=== PATIENT | female | born 1955 | race Caucasian/White ===

== ENCOUNTER → 2017-11-28 | Outpatient (CLI) | payer OTHER ==
[~2017-11-28] MED LIST: ADVAIR 250-501 EACH INH; ALLERTEC PO; AMLODIPINE BESY10 MG PO; ASPIRIN325; ASPIRIN81 M2 PO; BIAXIN 500 MG500 M1 PO; CELEXA40 MG PO; COZAAR 50 MG TA50 M2 PO; CRESTOR10 MG PO; CYCLOBENZAPRINE10 MG PO; DUONEB 2.5-0.5 M3 ML INH; EXFORGE; EXFORGE PO; FLEXERIL PO; FUROSEMIDE 20 M20 M1 PO; GLUCOPHAGE500 MG PO; HYDROCODONE-APA1 TA1 PO; IRON325 PO; LEVOTHYROXIN0.075 MG PO; LOPRESSOR25; LORAZEPAM 0.50.5 M1 PO; NICOTINE TRANSD14 M1; NORCO 5-325 TA1 EACH; NORVASC 5 MG TAB5 MG PO; NOVOLOG100 UNIT/1 SQ; OXYCODONE HCL5 M1; OXYCODONE HCL5 M1 PO; PERCOCET 5-3251 EACH PO; POTASSIUM GLUCONATE PO; PREDNISONE 10 M10 M1 PO; PREDNISONE 20 M20 MG PO; PROAIR HFA8.5 GM; PROAIR PO; PROTONIX 20 MG20 M1 PO; ROBAXIN500 MG PO; SINGULAIR 10 MG10 M1 PO; VITAMIN B-12500 MCG PO; VITAMIN D32000 UNI1 PO; XARELTO10 M1; ZOCOR20 MG PO; ZPAK PO
--- NOTE | 2017-12-08 11:21 | SLEEP ---
[facility] [address] [place] [address] SLEEP STUDY REPORT Name: MARISELA TURPIN Room: [facility]#: [id number] Admission: 11/28/17 Attend Phys: Justin Mcdaniels Discharge: Date of : 53 Report #: [id number] THIS REPORT FOR: //name// CC: Maritza Carvalho This study has been reviewed in its entirety by a board certified sleep specialist DATE OF SERVICE: 11/28/2017 REFERRING PHYSICIAN: Maritza Carvalho DO INDICATION FOR STUDY: Fatigue and snoring. This was a home sleep apnea test with total recording time 559 minutes. During the study, the patient had 1 central apnea, 85 obstructive apnea and 173 hypopneas with overall apnea-hypopnea index 27.8 per hour. The patient spent the whole night on the right lateral position. OXIMETRY DISTRIBUTION: The average O2 saturation during the study was 89%. The lowest O2 saturation recorded was 74%. It was noted the patient spent 356 minutes with O2 saturation less than 90%. Average heart rate was 67 beats per minute and snoring was recorded during the study. IMPRESSION: 1. The above home sleep apnea test demonstrates obstructive sleep apnea with apnea-hypopnea index 27.8 and oxygen desaturation down to 74%. 2. Hypoxemia during sleep with O2 saturation on average 89% and the patient spent 356 minutes with O2 saturation less than 90%. RECOMMENDATIONS: 1. Due to severe hypoxemia during sleep, we would recommend sending the patient to a sleep lab for attended in lab sleep study with a purpose of PAP titration to determine the PAP pressure that controls the patient's obstructive sleep apnea. At the same time determine the need for oxygen after controlling the patient's obstructive sleep apnea. 2. Hypoxemia during sleep, recommend evaluation for intrinsic lung disease. <ELECTRONICALLY SIGNED> By: Joselo Fair MD 12/08/17 1121 1218 [id number] Fair MD /nt
== END ==
LOC: M.SLEEPLAB 00:59
DX: G47.33 Obstructive sleep apnea (adult) (pediatric) (principal); J43.9 Emphysema, unspecified; E11.9 Type 2 diabetes mellitus without complications; I10 Essential (primary) hypertension

== ENCOUNTER → 2018-02-04 | Outpatient (CLI) | payer OTHER ==
--- NOTE | 2018-02-21 11:16 | SLEEP ---
[address] [address] SLEEP STUDY REPORT Name: MARISELA TURPIN Room: [facility]#: [id number] Admission: 02/04/18 Attend Phys: Justin Mcdaniels Discharge: Date of : 53 Report #: [id number] THIS REPORT FOR: //name// CC: Maritza Carvalho This study has been reviewed in its entirety by a board certified sleep specialist REFERRING PHYSICIAN: Maritza Carvalho DO. TYPE OF STUDY: Polysomnography. INDICATION: Obstructive sleep apnea, unspecified; hypersomnia with [employer] sleepiness score of 15. METHOD: The following parameters were monitored: Frontal, central and occipital EEG; electro-oculogram; submentalis EMG; nasal and oral airflow; anterior tibialis EMG; body position and electrocardiogram. Additionally, thoracic and abdominal movements were recorded by inductance plethysmography. Oxygen saturation was monitored using pulse oximeter. The tracing was used scoring 30-second epochs. Hypopneas were recorded per the [employer] definition using the 4% desaturation criteria. SLEEP DATA: Total recording time 490.2 minutes. Total sleep time was 399.5 minutes. Sleep efficiency was 81.5%. SLEEP STAGING: Stage N1 was 22.8% of total sleep time, stage N2 was 61.0% of total sleep time, stage N3 was 0.3% of total sleep time and stage REM was 16% of total sleep time. RESPIRATORY DATA: During the study, the patient had a total of 62 hypopneas and 3 apneas, with overall apnea-hypopnea index of 10.1. However, these episodes were more frequent during REM, with apnea-hypopnea index during REM 31.9 per hour. OXYGEN DATA: The average O2 saturation during the study was 93%. The lowest O2 saturation recorded was 83%. CARDIAC DATA: Average heart rate during the study was 63.4 beats per minute. No arrhythmias were reported. PERIODIC LIMB MOVEMENT IN SLEEP STATISTICS: Periodic limb movement was noted, PLMS arousal index 24.5. Snoring also was reported. IMPRESSION: [place] [address] SLEEP STUDY REPORT Name: MARISELA TURPIN Room: [facility]#: [id number] Admission: 02/04/18 Attend Phys: Justin Mcdaniels Discharge: Date of : 53 Report #: [id number] 1. The above polysomnography demonstrates obstructive sleep apnea of mild degree at apnea-hypopnea index of 10.1 per hour, with oxygen desaturation to a ugo of 83%. However, the episodes were much more frequent during REM sleep, with REM asscoiated apnea-hypopnea index 31.9 per hour. 2. It was noted there was increased periodic limb movement of sleep. Clinical correlation is suggested. RECOMMENDATIONS: 1. Given the patient's elevated [employer] sleepiness score, that suggested hypersomnia, we would recommend repeat sleep study with the purpose of CPAP titration to determine the appropriate CPAP pressure that controls the patient's obstructive sleep apnea. 2. Recommend avoiding driving or operating machinery while sleepy. 3. Avoid alcohol, hypnotics and narcotics close to bedtime. 4. Recommend maintaining ideal body weight. <ELECTRONICALLY SIGNED> By: Joselo Fair MD 02/21/18 1116 1212 [id number] Fair MD /nt
== END ==
LOC: M.SLEEPLAB 01-20 19:57
DX: G47.30 Sleep apnea, unspecified (principal); R09.02 Hypoxemia

== ENCOUNTER → 2018-03-20 | Outpatient (CLI) | payer OTHER ==
--- NOTE | 2018-03-27 07:49 | SLEEP ---
[facility] [address] [place] [address] SLEEP STUDY REPORT Name: MARISELA TURPIN Room: [facility]#: [id number] Admission: 03/20/18 Attend Phys: Justin Mcdaniels Discharge: Date of : 53 Report #: [id number] THIS REPORT FOR: //name// CC: Maritza Carvalho This study has been reviewed in its entirety by a board certified sleep specialist DATE OF SERVICE: 03/20/2018 POLYSOMNOGRAPHY PRESSURE TITRATION REPORT REQUESTING PHYSICIAN: Maritza Carvalho DO. Polysomnography was performed with CPAP titration. A previous sleep study was done, which revealed mild obstructive sleep apnea. Because of that, as well as complaints of hypersomnolence, she returned to the sleep lab for titration. The total recording time was 398 minutes. Total sleep time 377 minutes. Sleep efficiency 85%. 15% of the time was spent in REM sleep. Nasal CPAP was started at 7 cm of water pressure. Subsequently converted over to BiPAP due to presence of central apneas. Ending pressure was 16/12. Her apnea-hypopnea index at that setting was 4.2. During the study, she did have very large amount of limb movements. There were 526 periodic limb movements noted, 78 associated with an arousal. This resulted in a PLMS arousal index of 13.9. Some snoring was noted, but was minimal. O2 saturations generally remained greater than 90%. The lowest observed O2 saturation was 81%. the above settings, mild desaturation was noted. The central apneas were not eliminated. ASSESSMENT: 1. Titration attempts were not totally successful. Does have persistence of central apneas even on BiPAP. 2. Large number of periodic limb movements. Many of these are also associated with an arousal which will contribute to disrupted sleep. 3. Elevated body mass index. RECOMMENDATIONS: 1. Options are consider return to the sleep lab for additional BiPAP titration. She may require backup ventilation conversion to BiPAP auto serve. May alternatively also try BiPAP settings of 16/12 with backup rate of 10 empirically. Would also consider obtaining overnight [place] [address] SLEEP STUDY REPORT Name: MARISELA TURPIN Room: [facility]#: [id number] Admission: 03/20/18 Attend Phys: Justin Mcdaniels Discharge: Date of : 53 Report #: [id number] acclimated to the BiPAP to ensure adequate oxygenation. 2. Address periodic limb movement disorder. 3. Achieving and maintaining ideal body weight/BMI. 4. Also note, a medium-size mask [employer] was utilized. He had a ramp of 3 and C-Flex of 10. <ELECTRONICALLY SIGNED> By: Arcelia Summers MD 03/27/18 0749 0856 MD indira Painter
== END ==
LOC: M.SLEEPLAB 20:54
DX: G47.33 Obstructive sleep apnea (adult) (pediatric) (principal)

== ENCOUNTER → 2018-04-24 | Outpatient (CLI) | payer OTHER | LOC: M.RAD 10:00 | DX: N63.20 Unspecified lump in the left breast, unspecified quadrant (principal); R92.8 Other abnormal and inconclusive findings on diagnostic imaging of breast ==

== ENCOUNTER → 2018-05-01 | Outpatient (CLI) | payer OTHER ==
--- NOTE | 2018-05-05 08:33 | SLEEP ---
[facility] [address] [place] [address] SLEEP STUDY REPORT Name: MARISELA TURPIN Room: [facility]#: [id number] Admission: 05/01/18 Attend Phys: Justin Mcdaniels Discharge: Date of : 53 Report #: [id number] THIS REPORT FOR: //name// CC: Maritza Carvalho This study has been reviewed in its entirety by a board certified sleep specialist DATE OF SERVICE: 05/01/2018 TITRATION REPORT REQUESTING PHYSICIAN: Dr. Maritza Carvalho. Polysomnography was performed with a titration study. She returned to the sleep lab as she has had prior studies performed. She has an [place] sleepiness scale of 20. Weight 217 pounds. She has frequent awakenings and difficulty staying awake during the day. The total study time was 428 minutes. Total sleep time 289 minutes. Sleep efficiency was 68%. During the study, 33% of the time was spent in REM sleep. This was a BiPAP titration. Initial settings were an IPAP of 11 and an EPAP of 6. During this study, the BiPAP was transitioned over to BiPAP S/T due to central apneas noted. During this titration study, there were a total of 314 periodic limb movements noted. A 90 of these were associated with an arousal. That resulted in a PLMS arousal index of 18.7. Minimal snoring was noted. Respiratory arousals were noted in addition to those from her leg movements as well as some also spontaneous. O2 saturations remained greater than 90% almost the entire study time. BiPAP pressures started at 8/4. The maximum pressures were 18/12 with a rate of 10. However, the optimal pressure for her appeared to be BiPAP of 17/12 with a rate of 8. At that level, her apnea-hypopnea index was 1.1 with minimal other arousals noted. O2 saturations were greater than 90%. IMPRESSION: Titration study reveals BiPAP pressures of 17/12 with a rate of 8 are successful at controlling her obstructive and central apneas. Note, a medium size F and P [employer] full face mask was utilized along with a ramp [place] [address] [place] [address] SLEEP STUDY REPORT Name: MARISELA TURPIN Room: [facility]#: [id number] Admission: 05/01/18 Attend Phys: Justin Mcdaniels Discharge: Date of : 53 Report #: [id number] Would recommend treatment with the BiPAP S/T at above settings. If continued sleep complaints, then would address underlying limb movement disorder. <ELECTRONICALLY SIGNED> By: Arcelia Summers MD 05/05/18 0833 1259 [id number] Summers MD /nt
== END ==
LOC: M.SLEEPLAB 21:00
DX: G47.30 Sleep apnea, unspecified (principal); I10 Essential (primary) hypertension; J45.41 Moderate persistent asthma with (acute) exacerbation; J43.9 Emphysema, unspecified; J30.9 Allergic rhinitis, unspecified; J06.9 Acute upper respiratory infection, unspecified; B97.89 Other viral agents as the cause of diseases classified elsewhere

== ENCOUNTER → 2018-11-06 | Outpatient (CLI) | payer OTHER | LOC: M.ULTRA 10-30 15:00 | DX: M79.89 Other specified soft tissue disorders (principal); M79.662 Pain in left lower leg ==

== ENCOUNTER → 2021-06-26 | Outpatient (CLI) | payer OTHER | END | disposition home or self-care (01) | LOC: M.RAD 08:40 | PROVIDERS: ATTEND Orthopaedic Surgery | DX: M25.551 Pain in right hip (principal); Z98.890 Other specified postprocedural states ==

== ENCOUNTER → 2021-12-21 | Outpatient (CLI) | payer OTHER ==
[~2021-12-21] MED LIST changes: +BIOTIN5000 MC1 PO; +FUROSEMIDE 20 M20 MG PO; +HYDRALAZINE 5050 MG PO; +IMDUR 60 MG TAB60 M1 PO; +K-DUR10 MEQ PO; +LIPITOR40 MG PO; +NEURONTIN 300M300 M2 PO
== END ==
LOC: M.PC 12-02 10:00
PROVIDERS: ATTEND Physical Medicine & Rehabilitation
DX: M47.816 Spondylosis without myelopathy or radiculopathy, lumbar region (principal); M51.26 Other intervertebral disc displacement, lumbar region; M79.604 Pain in right leg

== ENCOUNTER → 2021-12-28 | Outpatient (CLI) | payer OTHER | LOC: M.MRI 12-25 13:30 | PROVIDERS: ATTEND Physical Medicine & Rehabilitation | DX: M51.16 Intervertebral disc disorders with radiculopathy, lumbar region (principal); M48.061 Spinal stenosis, lumbar region without neurogenic claudication ==